=== PATIENT | male | born 1955 | race Caucasian/White ===

== ENCOUNTER → 2016-10-21 | Outpatient (REF) | payer SELFPAY ==
[2016-10-21 09:51] LABS: BILIRUBIN,URINE Negative (Negative); CLARITY,URINE Clear; COLOR,URINE Yellow; GLUCOSE, URINE (UA) Negative (Negative); LEUKOCYTE ESTERASE ,URINE Negative (Negative); UROBILINOGEN,URINE 0.2 mg/dL (0.2-1.0)
[2016-10-21 09:57] LABS: BASOPHILS % (AUTO) 1 % (0-2); EOSINOPHILS # (AUTO) 0.4 10^3uL; EOSINOPHILS % (AUTO) 6 % (0-4); LYMPHOCYTES # (AUTO) 1.5 X10^3; MEAN CORPUSCULAR HGB CONC 34.6 g/dL (31.0-37.0); MEAN CORPUSCULAR VOLUME 97 FL (80-100); MONOCYTES # (AUTO) 0.9 X10^3; MONOCYTES % (AUTO) 15 % (3-11); NEUTROPHILS # (AUTO) 3.2 X10^3; NEUTROPHILS % (AUTO) 52 % (51-67); PLATELET COUNT 261 10^3uL (150-450); WHITE BLOOD COUNT 6.12 10^3uL (4.0-11.0)
[2016-10-21 09:58] LABS: MEAN CORPUSCULAR HEMOGLOBIN 33.5 PG (26.0-34.0)
[2016-10-21 10:05] LABS: ALBUMIN 4.7 g/dL (3.4-5.0); ANION GAP 16.3 MEQ/L (3-15); TOTAL PROTEIN 7.8 g/dL (6.4-8.5)
== END ==
LOC: LAB 09:39
PROVIDERS: ATTEND Family Medicine
DX: R10.32 Left lower quadrant pain (principal); K92.1 Melena; K86.3 Pseudocyst of pancreas
CPT/HCPCS: 80053; 81003; 85025